=== PATIENT | male | born 1990 | race Caucasian/White ===

== ENCOUNTER → 2017-08-16 | Outpatient (CLI) | payer BC | END | disposition home or self-care (01) | LOC: PETCFH 08:10 | PROVIDERS: ATTEND Internal Medicine Gastroenterology | DX: R11.2 Nausea with vomiting, unspecified (principal); K59.01 Slow transit constipation; E10.65 Type 1 diabetes mellitus with hyperglycemia; E03.9 Hypothyroidism, unspecified; R12 Heartburn; R63.4 Abnormal weight loss; E55.9 Vitamin D deficiency, unspecified | CPT/HCPCS: 78264; A9541 ==

== ENCOUNTER 2018-04-20 15:51 | Observation (INO) | payer BC, OTHER ==
[~2018-04-20] VITALS: Ht 165.1 cm; Wt 62.1 kg
[2018-04-20] MEDS ORDERED: METOCLOPRAMIDE 5 MG/ML, 2ML ONE (16:22)
[2018-04-20] MEDS ORDERED: ONDANSETRON 2MG/ML, 2ML ONE (16:22)
[2018-04-20 16:28] LABS: BASOPHILS % (AUTO) 0 % (0-1); EOSINOPHILS % (AUTO) 0 % (1-7); LYMPHOCYTES # (AUTO) 0.57 x10^3/uL (1-3.4); LYMPHOCYTES % (AUTO) 9 % (22-44); MD NO; MEAN CORPUSCULAR HEMOGLOBIN 29.8 pg (27.5-34.5); MEAN CORPUSCULAR HGB CONC 34.6 g/dL (33.2-36.2); MEAN CORPUSCULAR VOLUME 86.3 fL (81-97); MEAN PLATELET VOLUME 10.1 fL (7.4-10.4); MONOCYTES # (AUTO) 0.57 x10^3/uL (0.2-0.8); MONOCYTES % (AUTO) 9 % (2-9); NEUTROPHILS # (AUTO) 5.33 x10^3/uL (1.8-6.8); NEUTROPHILS % (AUTO) 82 % (42-75); PLATELET COUNT 179 x10^3/uL (130-400); RED BLOOD COUNT 5.53 x10^6/uL (4.38-5.82); RED CELL DISTRIBUTION WIDTH 12.3 % (9.4-14.8)
[2018-04-20] MEDS ORDERED: SODIUM CHLORIDE FLUSH 10ML SYR IVF ONE (16:30)
[2018-04-20] MEDS ORDERED: PLEASE ENTER HEIGHT AND WEIGHT MC SCH (16:30)
[2018-04-20] MEDS ORDERED: METOCLOPRAMIDE 5 MG/ML, 2ML IVPush ONE (16:30)
[2018-04-20] MEDS ORDERED: ONDANSETRON 2MG/ML, 2ML IVPush ONE (16:30)
[2018-04-20] MEDS ORDERED: PLEASE ENTER ALLERGIES MC SCH (16:30)
[2018-04-20] MEDS ORDERED: SODIUM CHLORIDE 0.9% 1,000ML IVBOLUS ONE ×2 (16:30→18:00)
[2018-04-20] MEDS ORDERED: PANT40TA5 PO (16:35)
[2018-04-20] MEDS ORDERED: INSU100V8 SQ (16:35)
[2018-04-20] MEDS ORDERED: INSU100C SQ-INSULIN (16:35)
[2018-04-20] MEDS ORDERED: LEVO25TA4 PO (16:35)
[2018-04-20 16:40] LABS: ALANINE AMINOTRANSFERASE 17 U/L (12-78); ALBUMIN 4.1 g/dL (3.4-5.0); ANION GAP 17 mmol/L (5-15); CALCIUM 9.1 mg/dL (8.5-10.1); CHLORIDE 104 mmol/L (98-107); CREATININE 0.95 mg/dL (0.7-1.3)
[2018-04-20 16:42] LABS: ALKALINE PHOSPHATASE 64 U/L (45-117); BILIRUBIN,TOTAL 0.8 mg/dL (0.2-1.0); TOTAL PROTEIN 7.4 g/dL (6.4-8.2)
[2018-04-20 17:34] LABS: MICROSCOPIC INDICATED
[2018-04-20 17:46] LABS: CULTURE INDICATED? NO
[2018-04-20 18:35] LABS: CLOSTRIDIUM DIFFICILE ANTIGEN NEGATIVE; CLOSTRIDIUM DIFFICILE TOXIN NEGATIVE (Negative)
[2018-04-20] MEDS ORDERED: SODIUM CHLORIDE FLUSH 10ML SYR IVF PRN (20:00)
[2018-04-20 20:13] LABS: ACETONE, SERUM Moderate(40mg/dL) mg/dL (Negative)
[2018-04-20] MEDS: NS + 20MEQ KCL 1,000 ML IV SCH (20:27)
[2018-04-20] MEDS ORDERED: IBUPROFEN 600 MG TABLET PO PRN (20:30)
[2018-04-20] MEDS ORDERED: hydrALAzine 20 MG/ML, 1ML IVPush PRN (20:30)
[2018-04-20] MEDS ORDERED: LABETALOL 5MG/ML, 20ML IVPush PRN (20:30)
[2018-04-20] MEDS ORDERED: DEXTROSE 4 GM TAB.CHEW PO PRN (20:30)
[2018-04-20] MEDS ORDERED: ONDANSETRON ODT 4 MG PO PRN (20:30)
[2018-04-20] MEDS ORDERED: ACETAMINOPHEN 325 MG TABLET PO PRN (20:30)
[2018-04-20] MEDS ORDERED: METOCLOPRAMIDE 5 MG/ML, 2ML IVPush PRN (20:30)
[2018-04-20] MEDS ORDERED: ONDANSETRON 2MG/ML, 2ML IVPush PRN (20:30)
[2018-04-20] MEDS ORDERED: ENALAPRILAT 1.25 MG/ML, 2ML IVPush PRN (20:30)
[2018-04-20] MEDS ORDERED: DEXTROSE 50%, 50ML SYRINGE IVPush PRN (20:30)
[2018-04-20] MEDS ORDERED: GLUCAGON 1 MG IM PRN (20:30)
[2018-04-20] MEDS ORDERED: SODIUM PHOSPHATE IV ONE (21:00)
[2018-04-20] MEDS ORDERED: MAGNESIUM SULFATE PMX 2GM/50ML 50 ML IV ONE (21:00)
[2018-04-20] MEDS ORDERED: INSULIN GLARGINE 100 UNITS/ML, PEN SQ-INSULIN SCH (21:00)
[2018-04-20] MEDS ORDERED: SODIUM CHLORIDE 0.45% IV ONE (21:00)
[2018-04-20 21:20] VITALS: BP 115/70
[2018-04-20] MEDS: ENOXAPARIN 40 MG/0.4 ML SQ SCH (22:27)
[2018-04-20] MEDS: INSULIN LISPRO 100 UNITS/ML, PEN SQ-INSULIN SCH (22:28)
[2018-04-20] MEDS: SODIUM CHLORIDE FLUSH 10ML SYR IVF SCH (22:37)
[2018-04-20] MEDS: INSULIN GLARGINE 100 UNITS/ML, PEN SQ-INSULIN SCH (22:50)
[2018-04-21 02:10] VITALS: BP 98/57
[2018-04-21 05:55] LABS: ANION GAP 11 mmol/L (5-15); CALCIUM 7.8 mg/dL (8.5-10.1); CHLORIDE 108 mmol/L (98-107); CREATININE 0.67 mg/dL (0.7-1.3)
[2018-04-21 05:56] LABS: BASOPHILS # (AUTO) 0.02 x10^3/uL (0-0.1); BASOPHILS % (AUTO) 0 % (0-1); EOSINOPHILS % (AUTO) 0 % (1-7); LYMPHOCYTES # (AUTO) 0.74 x10^3/uL (1-3.4); LYMPHOCYTES % (AUTO) 13 % (22-44); MD NO; MEAN CORPUSCULAR HEMOGLOBIN 30.3 pg (27.5-34.5); MEAN CORPUSCULAR HGB CONC 34.9 g/dL (33.2-36.2); MEAN PLATELET VOLUME 9.8 fL (7.4-10.4); MONOCYTES # (AUTO) 0.52 x10^3/uL (0.2-0.8); MONOCYTES % (AUTO) 9 % (2-9); NEUTROPHILS # (AUTO) 4.49 x10^3/uL (1.8-6.8); NEUTROPHILS % (AUTO) 78 % (42-75); PLATELET COUNT 132 x10^3/uL (130-400); RED CELL DISTRIBUTION WIDTH 12.5 % (9.4-14.8)
[2018-04-21] MEDS: INSULIN LISPRO 100 UNITS/ML, PEN SQ-INSULIN SCH ×4 (07:00→19:53)
[2018-04-21 07:04] VITALS: BP 99/62
[2018-04-21] MEDS ORDERED: MAGNESIUM SULFATE 1 GM in SODIUM CHLORIDE 0.9% 50 ML IV ONE (07:30)
[2018-04-21 07:45] LABS: FREE T4 (FREE THYROXINE) 1.91 ng/dL (0.76-1.46)
[2018-04-21] MEDS: NS + 20MEQ KCL 1,000 ML IV SCH ×3 (08:12→22:37)
[2018-04-21] MEDS: PANTOPROZOLE 40MG TABLET PO SCH (08:12)
[2018-04-21] MEDS: SODIUM CHLORIDE FLUSH 10ML SYR IVF SCH ×2 (08:13→19:54)
[2018-04-21] MEDS: INSULIN GLARGINE 100 UNITS/ML, PEN SQ-INSULIN SCH ×2 (08:13→20:06)
[2018-04-21] MEDS: PROMETHAZINE 25 MG/ML, 1ML IM PRN ×3 (08:26→20:05)
[2018-04-21] MEDS ORDERED: INSULIN GLARGINE 100 UNITS/ML, PEN SQ-INSULIN SCH (09:00)
[2018-04-21] MEDS ORDERED: LEVOTHYROXINE 125 MCG TABLET PO SCH (09:00)
[2018-04-21 12:29] VITALS: BP 109/65
[2018-04-21 12:54] LABS: HEMOGLOBIN A1C 8.8 % (4.2-6.3)
[2018-04-21 15:49] LABS: ANION GAP 14 mmol/L (5-15); CHLORIDE 108 mmol/L (98-107); CREATININE 0.68 mg/dL (0.7-1.3)
[2018-04-21 16:27] LABS: ACETONE, URINE Large (80mg/dL) (Negative)
[2018-04-21 16:44] LABS: ACETONE, SERUM Moderate(40mg/dL) mg/dL (Negative)
[2018-04-21] MEDS ORDERED: SODIUM CHLORIDE 0.9% 1,000ML IVBOLUS ONE (17:00)
[2018-04-21] MEDS: ENOXAPARIN 40 MG/0.4 ML SQ SCH (19:54)
[2018-04-21 20:26] VITALS: BP 112/68
[2018-04-22 01:02] LABS: ANION GAP 6 mmol/L (5-15); CHLORIDE 108 mmol/L (98-107)
[2018-04-22 01:19] LABS: ACETONE, SERUM Moderate(40mg/dL) mg/dL (Negative)
[2018-04-22 02:29] VITALS: BP 107/66
[2018-04-22 03:21] LABS: ACETONE, URINE Large (80mg/dL) (Negative)
[2018-04-22] MEDS: NS + 20MEQ KCL 1,000 ML IV SCH ×2 (04:40→11:26)
[2018-04-22] MEDS ORDERED: LEVOTHYROXINE 150 MCG TABLET PO SCH (06:00)
[2018-04-22 06:44] LABS: ANION GAP 8 mmol/L (5-15); CALCIUM 7.3 mg/dL (8.5-10.1); CHLORIDE 109 mmol/L (98-107); CREATININE 0.62 mg/dL (0.7-1.3)
[2018-04-22] MEDS: INSULIN LISPRO 100 UNITS/ML, PEN SQ-INSULIN SCH ×2 (07:00→11:00)
[2018-04-22 07:20] VITALS: BP 118/71
[2018-04-22] MEDS: INSULIN GLARGINE 100 UNITS/ML, PEN SQ-INSULIN SCH (09:17)
[2018-04-22] MEDS: PANTOPROZOLE 40MG TABLET PO SCH (09:17)
[2018-04-22] MEDS: SODIUM CHLORIDE FLUSH 10ML SYR IVF SCH (09:18)
[2018-04-22 09:38] LABS: ACETONE, URINE Large (80mg/dL) (Negative)
[2018-04-22] MEDS ORDERED: LEVO150T PO (11:15)
[2018-04-22] MEDS ORDERED: PROM12.55 PO (11:15)
== END 2018-04-22 12:45 | disposition home or self-care (01) ==
LOC: ED 19:00 → EDIP 19:44 → INTOOBSV 19:44 → 4WST 20:48
PROVIDERS: ADMIT Internal Medicine; ATTEND Internal Medicine
DX: K52.9 Noninfective gastroenteritis and colitis, unspecified (principal); E87.3 Alkalosis; E05.90 Thyrotoxicosis, unspecified without thyrotoxic crisis or storm; E03.8 Other specified hypothyroidism; E83.42 Hypomagnesemia; E83.39 Other disorders of phosphorus metabolism; I21.9 Acute myocardial infarction, unspecified; K29.00 Acute gastritis without bleeding; F17.200 Nicotine dependence, unspecified, uncomplicated; E10.65 Type 1 diabetes mellitus with hyperglycemia; Z79.4 Long term (current) use of insulin; Z86.14 Personal history of Methicillin resistant Staphylococcus aureus infection; Z79.890 Hormone replacement therapy
CPT/HCPCS: 36415; 74021; 80048; 80053; 81001; 82009; 82010; 82800; 82962; 83036; 83605; 83690; 83735; 83930; 84100; 84439; 84443; 84481; 85025; 87324; 89055; 93005; 96361; 96365; 96366; 96367; 96372; 96374; 96375; 96376; 99284; G0378; J1650; J1815; J2405; J2550; J2765; J3475; J3480; J7030; 99285